=== PATIENT | male | born 1965 | race Caucasian/White ===

== ENCOUNTER 2017-09-25 11:14 | Emergency (ER) | payer OTHER, SELFPAY ==
[2017-09-25 11:15] VITALS: BP 154/96; PULSE 75; RESP 18; TEMP 36.4; O2SAT 100; BMI 25.9
--- NOTE | 2017-09-25 11:24 | ED.VISSUMM ---
- ER Visit Summary Date of Service: 09/25/17 Chief Complaint: Injury left index and long finger using table saw History of Present Illness: The patient is a 52 M left hand dominant male who presents with injury volar surface left index and long finger that occurred at work while using a table saw. Immunization approximately 5 years ago. He has no antibiotic allergies. He states he is unable to move the tips of his left index and long finger. He informed me that he had necrotizing fasciitis in the past. He is a smoker. He is on no anticoagulant. He denies a prior injury to the left index or long finger. Physical Examination: Vital signs are remarkable for a blood pressure 154/96. His fingers are in extension. Extensor in the side and extensor commonest tendon are intact. The flexor digitorum superficialis and flexor digitorum profundus are intact left index finger. The flexor digitorum profundus is not functional left long finger. He is a sensate distal DIP joint left long finger. Two-point discrimination normal left index finger. There is no subungual hematoma noted either digit. Test Results: X-ray of the left index and long finger reveals a comminuted distal phalanx fracture left long finger. Emergency Department Course and Treatment: Digits were anesthetized by digital block using 1% lidocaine. X-ray was obtained to evaluate extent of injury and rule out foreign body. He will receive 1 g of Ancef IM. He was made n.p.o. Digital block was placed both fingers. Anesthesia for short duration of time. Median block was placed as well as radial nerve block. The wounds were explored. The flexor tendon was lacerated left long finger. Since the flexor tendon was lacerated and patient lives in [facility] was paged to discuss case. Treatment Plan: The 3.0 cm laceration left index finger was sutured using 5-0 Ethilon. The wound involving the left long finger was approximated. The wounds were irrigated with 250 cc each using normal saline. The left index laceration was closed and approximated well. The left long finger was closed so there would be no exposure of bone or tendon. The fingers were cleaned and bulky dressing was applied. Physician cotton baler for [facility] has been paged and will discuss case to determine disposition. Patient remains n.p.o. until discussion with orthopedic hand surgeon Disposition: Spoke with Dr. Luong cotton baler for [facility]. She requested a splint and for patient to call the office now to arrange follow-up Impression: 1. Open comminuted distal phalanx fracture with involvement of the flexor digitorum profundus and radial and ulnar nerve bundle left long finger initial encounter 2. 3.0 cm laceration left index finger This note was generated with [employer] dictation software. It may contain incorrect words, spelling, and punctuation that were not noted in review of the chart prior to signing ED Disposition - Plan for ED Patient: Disposition: Home or Assisted Living Chief Complaint: Upper Extremity Injury Instructions: ED Fx Finger Closed Prescriptions: Hydrocodone Bitart/Apap 5-325 [[place] 5MG-325MG] 1 tab PO Q4H PRN PRN 2 Days #10 tab PRN Reason: Pain Cephalexin 500 mg PO 4X/DAY #20 cap Referrals: NOT,DEFINED [NON-STAFF] - Additional Instructions: Call Dr. Luong's office with [facility] orthopedics now for urgent outpatient follow-up
--- NOTE | 2017-09-25 11:29 | ED.DCSUM_ITS ---
- ER Visit Summary Date of Service: 09/25/17 Chief Complaint: Injury left index and long finger using table saw History of Present Illness: The patient is a 52 M left hand dominant male who presents with injury volar surface left index and long finger that occurred at work while using a table saw. Immunization approximately 5 years ago. He has no antibiotic allergies. He states he is unable to move the tips of his left index and long finger. He informed me that he had necrotizing fasciitis in the past. He is a smoker. He is on no anticoagulant. He denies a prior injury to the left index or long finger. Physical Examination: Vital signs are remarkable for a blood pressure 154/96. His fingers are in extension. Extensor in the side and extensor commonest tendon are intact. The flexor digitorum superficialis and flexor digitorum profundus are intact left index finger. The flexor digitorum profundus is not functional left long finger. He is a sensate distal DIP joint left long finger. Two-point discrimination normal left index finger. There is no subungual hematoma noted either digit. Test Results: X-ray of the left index and long finger reveals a comminuted distal phalanx fracture left long finger. Emergency Department Course and Treatment: Digits were anesthetized by digital block using 1% lidocaine. X-ray was obtained to evaluate extent of injury and rule out foreign body. He will receive 1 g of Ancef IM. He was made n.p.o. Digital block was placed both fingers. Anesthesia for short duration of time. Median block was placed as well as radial nerve block. The wounds were explored. The flexor tendon was lacerated left long finger. Since the flexor tendon was lacerated and patient lives in [facility] was paged to discuss case. Treatment Plan: The 3.0 cm laceration left index finger was sutured using 5-0 Ethilon. The wound involving the left long finger was approximated. The wounds were irrigated with 250 cc each using normal saline. The left index laceration was closed and approximated well. The left long finger was closed so there would be no exposure of bone or tendon. The fingers were cleaned and bulky dressing was applied. Physician electronic page makeup system operator for [facility] has been paged and will discuss case to determine disposition. Patient remains n.p.o. until discussion with orthopedic hand surgeon Disposition: Spoke with Dr. Luong electronic page makeup system operator for [facility]. She requested a splint and for patient to call the office now to arrange follow-up Impression: 1. Open comminuted distal phalanx fracture with involvement of the flexor digitorum profundus and radial and ulnar nerve bundle left long finger initial encounter 2. 3.0 cm laceration left index finger This note was generated with [employer] dictation software. It may contain incorrect words, spelling, and punctuation that were not noted in review of the chart prior to signing ED Disposition - Plan for ED Patient: Disposition: Home or Assisted Living Chief Complaint: Upper Extremity Injury Instructions: ED Fx Finger Closed Prescriptions: Hydrocodone Bitart/Apap 5-325 [[place] 5MG-325MG] 1 tab PO Q4H PRN PRN 2 Days #10 tab PRN Reason: Pain Cephalexin 500 mg PO 4X/DAY #20 cap Referrals: NOT,DEFINED [NON-STAFF] - Additional Instructions: Call Dr. Luong's office with [facility] orthopedics now for urgent outpatient follow-up
--- NOTE | 2017-09-25 11:30 | RAD_ITS ---
STUDY: X-RAY - LEFT HAND, ATTENTION SECOND AND THIRD FINGER REASON FOR EXAM: Male, 52 years old. History of laceration. TECHNIQUE: 3 view(s) of the finger were obtained. COMPARISON: None. FINDINGS: Normal metacarpal head. Normal metacarpophalangeal joint. Normal proximal phalanx. Normal middle phalanx. Comminuted fracture of the distal phalanx of the third digit. Soft tissue laceration. Normal proximal interphalangeal joint. Normal distal interphalangeal joint. Soft tissue swelling and injury overlying the distal phalanx of the index finger. RAD/Finger(s) Min 2 Views IMPRESSION: Comminuted fracture of the distal phalanx of the third digit with overlying soft tissue laceration. Soft tissue injury overlying the distal phalanx of the index finger. Electronically Signed: Jaime Elise MD at 12:04 EDT Tel [phone], Service support ,
--- NOTE | 2017-09-25 12:30 | NURSING ---
CALLING [facility] FOR DR GALVEZ. WILL BE DR VALDOVINOS
[2017-09-25 13:25] VITALS: BP 140/80; PULSE 67; RESP 16; O2SAT 97
[2017-09-25] MEDS: morphine 8 MG/ML Syringe IM (13:26)
--- NOTE | 2017-09-25 13:40 | NURSING ---
CALLING [facility] FOR DR GALVEZ
--- NOTE | 2017-09-25 13:53 | NURSING ---
DR ARUNA GALVEZ
[2017-09-25 14:16] VITALS: BP 136/80; PULSE 66; RESP 18; O2SAT 97
== END 2017-09-25 14:16 | disposition home or self-care (01) ==
PROVIDERS: Emergency Provider Emergency Medicine
DX: S62.633B Displaced fracture of distal phalanx of left middle finger, initial encounter for open fracture (principal); S61.211A Laceration without foreign body of left index finger without damage to nail, initial encounter; S66.123A Laceration of flexor muscle, fascia and tendon of left middle finger at wrist and hand level, initial encounter; F17.200 Nicotine dependence, unspecified, uncomplicated; W29.3XXA Contact with powered garden and outdoor hand tools and machinery, initial encounter; Y93.89 Activity, other specified; Y92.89 Other specified places as the place of occurrence of the external cause; Y99.0 Civilian activity done for income or pay
CPT/HCPCS: 12002; 73140; 96372; 99284